=== PATIENT | male | born 1980 | race Caucasian/White ===

== ENCOUNTER 2016-07-04 15:27 | Emergency (ER) | payer SELFPAY ==
[~2016-07-04] VITALS: Ht 170.2 cm; Wt 73.1 kg
[~2016-07-04 15:27] MED LIST: CIPR500T4 PO; LORTA5 PO
[2016-07-04 15:32] VITALS: BP 125/76; PULSE 73; RESP 16; TEMP 98; O2SAT 99
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
[2016-07-04] MEDS ORDERED: ACETAMINOPHEN/HYDROcodone 325 MG/7.5 MG TAB PO ONE (16:15)
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
[2016-07-04] MEDS ORDERED: CYCL1TAB29 PO (17:22)
[2016-07-04] MEDS ORDERED: IBUP800T23 PO (17:22)
== END 2016-07-04 17:57 | disposition home or self-care (01) ==
LOC: PHEFT 15:27
DX: S40.212A Abrasion of left shoulder, initial encounter (principal); F17.210 Nicotine dependence, cigarettes, uncomplicated; V29.40XA Motorcycle driver injured in collision with unspecified motor vehicles in traffic accident, initial encounter; Y93.9 Activity, unspecified; Y92.410 Unspecified street and highway as the place of occurrence of the external cause; Y99.9 Unspecified external cause status
CPT/HCPCS: 73030; 99284